=== PATIENT | female | born 1995 | race Caucasian/White ===

== ENCOUNTER 2016-07-04 09:31 | Emergency (ER) | payer OTHER ==
[2016-07-04] MEDS ORDERED: PROMETHAZINE 25 MG/ML VIAL ONE (11:48)
[2016-07-04] MEDS ORDERED: SODIUM CHLORIDE 0.9% 50 ML IV ONE (11:49)
[2016-07-04] MEDS ORDERED: SODIUM CHLORIDE 0.9% 1,000 ML ONE (11:49)
== END 2016-07-04 14:06 | disposition home or self-care (01) ==
LOC: ER 09:31
CPT/HCPCS: 36415 ×2; 80053 ×2; 81001 ×2; 81003 ×2; 83690 ×2; 84703 ×2; 85025 ×2; 86677 ×2; 86901 ×2; 96361; 96365; J2550